=== PATIENT | male | born 1965 | race Caucasian/White ===

== ENCOUNTER → 2019-05-18 | Outpatient (CLI) | payer OTHER ==
[2019-05-18 19:09] LABS: Hemoglobin A1C 7.6 % (4.0-6.0)
== END | disposition home or self-care (01) ==
LOC: LABWHC1 11:19
PROVIDERS: ATTEND Orthopaedic Surgery
DX: M25.572 Pain in left ankle and joints of left foot (principal); M19.172 Post-traumatic osteoarthritis, left ankle and foot; M51.9 Unspecified thoracic, thoracolumbar and lumbosacral intervertebral disc disorder; I10 Essential (primary) hypertension; E78.5 Hyperlipidemia, unspecified; E11.9 Type 2 diabetes mellitus without complications; F17.210 Nicotine dependence, cigarettes, uncomplicated
CPT/HCPCS: 36415; 83036

== ENCOUNTER → 2021-02-13 | Outpatient (CLI) | payer OTHER ==
--- NOTE | 2021-02-13 11:54 | US ---
EXAMINATION TYPE: US kidneys/renal and bladder DATE OF EXAM: 02/13/2021 COMPARISON: NONE CLINICAL HISTORY: N13.30 Hydronephrosis. Patient states his bladder ruptured and was in hospital. Mac brennan states they put a stent in to fix it? Right flank discomfort. EXAM MEASUREMENTS: Right Kidney: 11.2 x 5.9 x 4.8 cm Left Kidney: 10.5 x 5.2 x 5.9 cm Right Kidney: lower medial pedunculated cystic lesion - 1.6 x 1.7 x 1.3 cm Left Kidney: No hydronephrosis or masses seen Bladder: Bladder wall irregularities seen. Right wall outpouching seen - 4.9 x 3.9 x 2.9 cm Bilateral Jets seen There is no evidence for hydronephrosis at this point in time. No nephrolithiasis is seen. Bilate ral ureteral jets are seen. IMPRESSION: 1. Bladder wall irregularity with diverticula noted as well. 2. Pedunculated cystic lesion right kidney.
== END | disposition home or self-care (01) ==
LOC: RADUSWWP 11:02
PROVIDERS: ATTEND Urology
DX: N28.1 Cyst of kidney, acquired (principal); N32.3 Diverticulum of bladder
CPT/HCPCS: 76770

== ENCOUNTER → 2022-04-05 | Outpatient (CLI) | payer OTHER ==
[~2022-04-05] MED LIST: REGADENOSON 0.4 MG/5 ML SYRINGE IV PRN
--- NOTE | 2022-04-05 16:35 | NM ---
EXAMINATION TYPE: NM stress lexiscan cardiolite DATE OF EXAM: 04/05/2022 COMPARISON: NONE HISTORY: Chest pain, post myocardial infarction TECHNIQUE: After the intravenous administration of 9.67 mCi Tc 99m Sestamibi - Cardiolite resting SP ECT images acquired 50 minutes post injection. At peak stress 24.9 mCi Tc 99m Sestamibi - Stress images obtained 35 minutes post injection The patient was stressed with 0.4 mg of Lexiscan. FINDINGS: There is loss of radiotracer within the inferior wall extending from the cardiac base to the cardiac apex. This is greater within the mid to distal most portions towards the cardiac apex. This is matche d on both resting and stress images. Wall motion is normal. Ejection fraction is calculated to be 54 %. IMPRESSION: 1. No stress-induced ischemic change evident. 2. Fixed defect along the inferior wall extending from the cardiac base to the cardiac apex increasin g closer to the cardiac apex. Findings could be compatible with prior infarct.
--- NOTE | 2022-04-05 18:14 | CA ---
Lexiscan Nuclear Stress Test Report Name: sEdras Alexandra Exam Date: 04/05/2022 09:46 Exam Location: [facility] Ht (in): 71 Wt (lb): 203 BSA: 2.11 Ordering Phys: Rush Wahl MD Referring Phys: Rush Wahl MD Technologist: Joaquim Rutledge Age: 56 Gender: M : 1965 Procedure CPT: Indications: R07.9 chest pain I25.2 Post myocardial infarction ICD-10 Codes: Patient History: Medications: SEE LIST Meds past 24 hrs: Pretest Chest Pain: STRESS TEST Lexiscan Protocol Exercise Duration (min:sec): 01:[address] Depressions (mm): Angina Score: Pérez Score: Resting HR (bpm): 76 Peak HR (bpm): 97 Resting BP (mmHg): 124 / 83 Peak BP (mmHg): 127 / 83 MPHR: 163 Target HR: 139 % MPHR: 60 METS: 1.0 Total Dose: Peak Dose: Atropine: Double Product: 10831 BP Response: Stress Termination: INFUSION COMPLETE Stress Symptoms: DIFFICULTY IN BREATHING Stress Summary: ECG ANALYSIS Resting ECG: Stress ECG: CONCLUSIONS Baseline heart rate 80 beats a minute, Baseline blood pressure 124/83 mmHg Baseline EKG showed sinus mechanism with PVCs at a regular interval Normal heart rate and blood pressure response to Lexiscan infusion PVCs continued throughout the procedure No nonsustained VT No ECG evidence for ischemia Nuclear portion will be reported separately Dr. Luis Whitmore MD (Electronically Signed) Final Date: 05 April 2022 18:13
== END | disposition home or self-care (01) ==
LOC: RADNMMAIN 08:22
PROVIDERS: ATTEND Family Medicine
DX: I25.2 Old myocardial infarction (principal); R07.9 Chest pain, unspecified
CPT/HCPCS: 93017; 78452; A9500; J2785